=== PATIENT | male | born 1985 ===

== ENCOUNTER 2017-09-27 04:06 | Emergency (ER) | payer MEDICAID ==
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
[2017-09-27 08:18] VITALS: O2SAT 100
[2017-09-27 10:05] VITALS: BP 126/71; PULSE 79; RESP 18; TEMP 97.8
== END 2017-09-27 10:05 | disposition home or self-care (01) ==
LOC: H.ER 04:06
DX: S02.2XXA Fracture of nasal bones, initial encounter for closed fracture (principal); Y09 Assault by unspecified means